=== PATIENT | female | born 1950 | race Caucasian/White ===

== ENCOUNTER 2017-06-02 18:17 | Emergency (ER) | payer MEDICARE ==
--- NOTE | 2017-06-02 19:03 | ERNOTE ---
Integumentary HPI - General Time Seen by Provider: 06/02/17 18:17 Source: patient, family, RN notes reviewed Exam Limitations: no limitations - Immun/Allergies/Home Medications Immunizations: IMMUNIZATION HX Immunizations Up to Date Yes History of Influenza Vaccine No Hx Pneumococcal Vaccination No Allergies/Adverse Reactions: Allergies Allergy/AdvReac Type Severity Reaction Status Date / Time No Known Allergies Allergy Verified 05/27/15 06:26 Home Medications: HOME MEDICATIONS Albuterol Sulfate [Ventolin Hfa] 2 puff IH Q4H PRN 05/24/15 [Last Taken Unknown] Cetirizine HCl [Zyrtec] 10 mg PO DAILY 05/24/15 [Last Taken Unknown] Fluticasone/Salmeterol [Advair 250-50 Diskus] 1 puff IH BID 05/24/15 [Last Taken Unknown] Furosemide [Lasix] 20 mg PO DAILY 05/24/15 [Last Taken Unknown] Nabumetone 750 mg PO DAILY 05/24/15 [Last Taken Unknown] Potassium Chloride [Klor-Con 10] 10 meq PO DAILY 05/24/15 [Last Taken Unknown] Sertraline HCl 25 mg PO DAILY 05/24/15 [Last Taken Unknown] Acyclovir 800 mg PO 5XD #50 tablet 06/02/17 [Last Taken Unknown] Cephalexin Monohydrate [Keflex] 1,000 mg PO BID #40 cap 06/02/17 [Last Taken Unknown] - History of Present Illness Narrative: 66 year old female with 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 She presents with complaints of a rash that starts at her mid abdomen, extends around her torso, and ends mid spine. The rash is red with blisters all over it, and quite painful. The redness started about 6 weeks ago, but was milder until 3 days ago when it became fiery red. The rash is covered in small blisters with greenish color. She also has lymphedema to her left arm, and some mild erythema to that arm, her spouse notes that her arm gets really bad quickly, he feels she needs antibiotics. Location: Reports: torso - right upper quadrant, around the back, starts and ends midline Quality: Reports: painful, burning Severity: severe Exposure: Reports: no cause identified Modifying Factors - (Improves): Reports: nothing Modifying Factors - (Worsens): Reports: scratching Associated Symptoms: Reports: blisters Review of Systems - Review of Systems Constitutional: Absent: recent illness, fever, chills, weakness EYE: Present: no symptoms reported ENT: Absent: ear pain, sore throat, throat swelling Respiratory: Absent: shortness of breath, cough Cardiology: Absent: chest pain, palpitations, syncope, edema, claudication Gastrointestinal/Abdominal: Absent: nausea, vomiting, diarrhea, abdominal pain Genitourinary: Absent: frequency, pain, dysuria, hematuria Musculoskeletal: Absent: no symptoms reported, back pain, muscle pain, neck pain Skin: Absent: rash, dryness Neurological: Absent: anxiety, depressed Endocrine: Present: no symptoms reported Hematologic/Lymphatic: Present: no symptoms reported Psych: Present: no symptoms reported - Patient's Past Medical History Patient History - Medical: Other Patient History - Cardiac/Respiratory: No pertinent hx Patient History - Cancer: Breast, Surgical Treatment Patient History - Surgical Procedures: Other Patient History - Other: None - Social History Living Situations: home Abuse History: No History of abuse Psych History: No pertinent hx Smoking Status: Never smoker Have you smoked in the past 12 months: No Do you dip or chew tobacco: No Alcohol Use: none Drug Use: none - Immunizations Immunizations Up to Date: Yes Hx Pneumococcal Vaccination: No History of Influenza Vaccine: No Physical Exam - Physical Exam General Appearance: Present: wd/wn, alert, moderate distress Head Exam: Present: normal inspection, no evidence of injury Eye Exam: Normal inspection: bilateral, PERRL: bilateral, EOMI: bilateral Ears, Nose, Throat: Present: normal ENT inspection Neck: Present: normal inspection, nontender Respiratory: Present: no respiratory distress, normal breath sounds, no accessory muscle use, chest nontender, lungs clear Cardiovascular/Chest: Present: regular rate, rhythm, no murmur Gastrointestinal/Abdominal: Present: normal bowel sounds, nontender, nondistended, soft Back Exam: Present: normal range of motion, other - Rash that extends from mid- spine to mid-abdomen, red with greenish blisters Extremity Exam: Present: normal inspection, normal range of motion, extremity edema - left upper extremity Neurological Exam: Present: alert, oriented, normal mood/affect, no motor/ sensory deficits Skin Exam: Present: skin rash - right upper abdomen and posterior back ED Progress - Vital Signs Patient's Vital Signs:: I have reviewed the patient's vital signs. Vital Signs: Vital Signs 06/02/17 18:27 Temperature 35.7 C L Pulse Rate 102 H Respiratory 14 Rate Blood Pressure 139/77 O2 Sat by Pulse 96 Oximetry - Progress/Reassessment Chief Complaint: Rash Progress:: Unchanged Progress Note-Subjective: 06/02/17 19:49 Acyclovir 800 mg PO Ceftriaxone 1,000 mg IM with lidocaine Departure Clinical Impression: Lymphedema of left arm, Cellulitis of left arm Shingles rash Qualifiers: Herpes zoster complications: without complications Qualified Code(s): B02.9 - Zoster without complications - Departure Disposition: Home self-care Condition: Good Instructions: Shingles, [id number], Cellulitis, Adult, [id number], Postherpetic Neuralgia Referrals: Marcy Young DO [Primary Care Provider] - (3-5 days, sooner if no improvement) Prescriptions: Acyclovir 800 mg PO 5XD #50 tablet Cephalexin Monohydrate [Keflex] 1,000 mg PO BID #40 cap
[2017-06-02] MEDS ORDERED: ACYCLOVIR 800 MG TABLET PO ONE (19:33)
[2017-06-02] MEDS ORDERED: ACYCLOVIR 800 MG TABLET ONE (19:38)
[2017-06-02 19:45] VITALS: BP 114/69
== END 2017-06-02 20:02 | disposition home or self-care (01) ==
LOC: ER 18:17
DX: I89.0 Lymphedema, not elsewhere classified (principal); L03.114 Cellulitis of left upper limb; B02.9 Zoster without complications; Z85.3 Personal history of malignant neoplasm of breast